=== PATIENT | female | born 1985 | race Caucasian/White ===

== ENCOUNTER 2022-07-17 09:28 | Emergency (ER) | payer MEDICAID ==
[~2022-07-17] VITALS: Ht 157.5 cm; Wt 58.1 kg
[2022-07-17 09:37] VITALS: BP 114/76
--- NOTE | 2022-07-17 09:43 | NUR ---
PT AMB TO BED 9
--- NOTE | 2022-07-17 09:45 | NUR ---
PT BROUGHT TO BE 9. PT C/O LOWER, MID ABDO PAIN 01/14. ( [place]) PT STATES SHE'S 16 WEEKS PREG. PT STATES SHE HAD MULTIPLE EPISODES OF VAG BLEED " LAST MONDAY" PT IN ROOM, AWAITING TO BE SEEN BY
[2022-07-17 10:12] LABS: APPEARANCE,URINE CLOUDY (CLEAR); BILIRUBIN,URINE NEGATIVE (NEGATIVE); BLOOD, URINE 3+ (NEGATIVE); COLOR,URINE AMBER (YELLOW); LEUKOCYTE ESTERASE ,URINE 3+ (NEGATIVE); NITRITE, URINE NEGATIVE (NEGATIVE); PH,URINE 6.5 (5.0-9.0); UGLUCOSE NEGATIVE (NEGATIVE)
[2022-07-17 10:22] LABS: RBC,URINE 20-50 /HPF (0-5); WBC,URINE 16-25 (MOD) /HPF (0-5)
[2022-07-17 10:23] LABS: OTHER CASTS, URINE None Seen /LPF (None Seen)
[2022-07-17] MEDS ORDERED: CEPH-588 PO (11:21)
[2022-07-17] MEDS ORDERED: METR-520 PO (11:21)
[2022-07-17 11:23] VITALS: BP 102/76
--- NOTE | 2022-07-17 11:27 | NUR ---
Patient discharged with v/s stable. Written and verbal after care instructions given and explained. Patient verbalized understanding. Ambulatory with steady gait. All questions addressed prior to discharge. Advised to follow up with PMD.
--- NOTE | 2022-07-17 11:28 | NUR ---
The patient's care was reviewed and supervised by Sammie Campos, RN, RN.
[2022-07-20] MEDS ORDERED: SULF-59 PO (12:12)
--- NOTE | 2022-07-20 12:15 | NUR ---
LATE ENTRY. RECEIVED POSITIVE URINE CULTURE. FORM GIVEN TO DR CALDWELL. NEW RX OF BACTRIM DS BID X10 DAYS PRESCRIBED AND SENT TO PTS PHARMACY. PT CALLED AND INFORMED HER TO STOP TAKING KEFLEX AND START RX OF BACTRIM PER DR CALDWELL. FORM PLACED IN CHART.
== END 2022-07-17 11:23 | disposition home or self-care (01) ==
LOC: MED 09:28
DX: O23.42 Unspecified infection of urinary tract in pregnancy, second trimester (principal); N39.0 Urinary tract infection, site not specified; O23.592 Infection of other part of genital tract in pregnancy, second trimester; Z3A.16 16 weeks gestation of pregnancy
CPT/HCPCS: 81001; 81025; 87086; 87210; 99283